=== PATIENT | female | born 1990 | race Caucasian/White ===

== ENCOUNTER 2021-06-11 09:10 | Emergency (ER) | payer OTHER ==
[2021-06-11 09:27] VITALS: BMI 34.8
[2021-06-11] MEDS ORDERED: SODIUM CHLORIDE 1,000 ML IV STA (09:57)
[2021-06-11] MEDS ORDERED: MECLIZINE HCL 25 MG TABLET (FP) PO ONE (09:58)
[2021-06-11] MEDS ORDERED: MECLIZINE HCL 25 MG TABLET (FP) ONE (10:26)
[2021-06-11 10:40] LABS: BASO % 0.6 % (0-2.0); EOS % 0.3 % (0-4.5); HEMATOCRIT 37.6 % (32.4-45.2); HEMOGLOBIN 13.1 GM/dL (10.7-15.3); LYMPH % 15.9 % (8-40); MCH 33.4 pg (25.7-33.7); MCHC 34.7 g/dl (32.0-36.0); MEAN CELL VOLUME 96.2 fl (80-96); MEAN PLT VOLUME 8.5 fl (7.5-11.1); MONO % 4.8 % (3.8-10.2); NEUT % 78.4 % (42.8-82.8); PLATELET COUNT 230 10^3/uL (134-434); RBC 3.91 M/mm3 (3.60-5.2); RDW 13.6 % (11.6-15.6)
[2021-06-11 10:47] LABS: EPI CELLS >36 /uL (0-25.1); HYALINE CASTS 3 /uL (0-3.1); PH,URINE 7.5 (5.0-8.0); URINE APPEARANCE CLOUDY; URINE BACTERIA 2883 /uL (0-1359); URINE BILIRUBIN NEGATIVE (NEGATIVE); URINE COLOR YELLOW; URINE GLUCOSE (UA) NEGATIVE (NEGATIVE); URINE KETONE TRACE (NEGATIVE); URINE LEUK ESTERASE 2+ (NEGATIVE); URINE NITRITE NEGATIVE (NEGATIVE); URINE PROTEIN 1+ (NEGATIVE); URINE RBC 6 /uL (0-23.9); URINE UROBILINOGEN 0.2 mg/dL (0.2-1.0); URINE WBC 85 /uL (0-25.8)
[2021-06-11 10:59] LABS: CHLORIDE 107 mmol/L (98-107); SODIUM 139 mmol/L (136-145)
[2021-06-11 11:01] LABS: CALCIUM 8.8 mg/dL (8.5-10.1)
[2021-06-11 11:03] LABS: ANION GAP 8 MMOL/L (8-16); BLOOD UREA NITROGEN 7.9 mg/dL (7-18); CO2 24 mmol/L (21-32); GLUCOSE,RANDOM 70 mg/dL (74-106); MAGNESIUM 1.8 mg/dL (1.8-2.4)
[2021-06-11 11:05] LABS: CREATININE 0.8 mg/dL (0.55-1.3); SGOT/AST 15 U/L (15-37); SGPT/ALT 16 U/L (13-61)
[2021-06-11 11:07] LABS: BILIRUBIN,TOTAL 0.8 mg/dL (0.2-1); TOT PROT 6.8 g/dl (6.4-8.2)
[2021-06-11 11:08] LABS: ALK PHOS 75 U/L (45-117)
[2021-06-11 14:50] VITALS: TEMP 98
[2021-06-11 15:21] VITALS: BP 114/72; PULSE 89
== END 2021-06-11 15:27 | disposition home or self-care (01) ==
LOC: JER 09:10
PROC: 3E0337Z Introduction of Electrolytic and Water Balance Substance into Peripheral Vein, Percutaneous Approach (ICD-10-PCS; principal; 2021-06-11)
DX: O23.42 Unspecified infection of urinary tract in pregnancy, second trimester (principal); H81.10 Benign paroxysmal vertigo, unspecified ear; Z3A.24 24 weeks gestation of pregnancy
CPT/HCPCS: 36415; 80053; 81003; 82550; 82962; 83735; 84443; 84484; 85025; 87086; 93005; 93010; 99284-25; C9803; U0003; U0005

== ENCOUNTER 2021-09-12 20:00 | Inpatient (IN) | payer BC, OTHER ==
[2021-09-12 20:44] VITALS: BMI 37.8
[2021-09-12] MEDS ORDERED: DINOPROSTONE 10 MG VAGINAL SUPPOSITORY VG ONE (21:15)
[2021-09-12] MEDS ORDERED: ELECTROLYTE-148 SOLN 1,000 ML IV SCH (21:15)
[2021-09-12 21:30] LABS: BASO % 0.5 % (0-2.0); EOS % 0.2 % (0-4.5); HEMATOCRIT 32.8 % (32.4-45.2); HEMOGLOBIN 11.3 GM/dL (10.7-15.3); MCH 33.2 pg (25.7-33.7); MCHC 34.5 g/dl (32.0-36.0); MEAN CELL VOLUME 96.3 fl (80-96); MEAN PLT VOLUME 8.1 fl (7.5-11.1); MONO % 6.6 % (3.8-10.2); NEUT % 73.7 % (42.8-82.8); PLATELET COUNT 227 10^3/uL (134-434); RBC 3.41 M/mm3 (3.60-5.2); RDW 13.8 % (11.6-15.6); WHITE BLOOD COUNT 8.4 K/mm3 (4.0-10.0)
[2021-09-12 21:37] LABS: INR 0.93 (0.83-1.09); PROTHROMBIN TIME (PATIENT) 10.4 SEC (9.7-13.0)
[2021-09-12 21:39] LABS: ACTIVATED PTT 24.6 SECONDS (25.2-36.5)
[2021-09-12 22:03] LABS: CALCIUM 8.1 mg/dL (8.5-10.1)
[2021-09-12 22:04] LABS: BLOOD UREA NITROGEN 12.4 mg/dL (7-18)
[2021-09-12 22:07] LABS: CREATININE 0.9 mg/dL (0.55-1.3)
[2021-09-13] MEDS ORDERED: CITRIC ACID/SODIUM CITRATE 30 ML UNIT-DOSE CUP PO ONE (05:55)
[2021-09-13] MEDS ORDERED: METHYLERGONOVINE MALEATE 0.2 MG/1 ML AMP IM PRN (05:59)
[2021-09-13] MEDS ORDERED: ACETAMINOPHEN 325 MG TABLET (FP) PO PRN (05:59)
[2021-09-13] MEDS ORDERED: ELECTROLYTE-148 SOLN 1,000 ML IV SCH ×2 (06:00)
[2021-09-13] MEDS ORDERED: morphine SULFATE (PF) 1 MG/2 ML SYRINGE ONE (06:10)
[2021-09-13] MEDS ORDERED: OXYTOCIN 10 UNITS/ML VIAL ONE (06:49)
[2021-09-13] MEDS ORDERED: ceFAZolin SODIUM 1 GM VIAL ONE ×3 (06:49→20:23)
[2021-09-13] MEDS ORDERED: KETOROLAC TROMETHAMINE 30 MG/1 ML VIAL ONE (06:49)
[2021-09-13] MEDS ORDERED: ONDANSETRON 4 MG/2 ML VIAL ONE (06:49)
[2021-09-13] MEDS ORDERED: ACETAMINOPHEN INJECTION 100 ML IVPB ONE (07:49)
[2021-09-13] MEDS ORDERED: OXYTOCIN 20 UNITS in 0.9% NS 20 UNIT/1,000 ML INFUS.BAG IV ONE (07:49)
[2021-09-13] MEDS: OXYTOCIN 20 UNITS in 0.9% NS 20 UNIT/1,000 ML INFUS.BAG IV SCH ×2 (07:50→16:54)
[2021-09-13] MEDS ORDERED: ONDANSETRON 4 MG/2 ML VIAL IVPUSH PRN (08:01)
[2021-09-13] MEDS ORDERED: morphine SULFATE/PF 1 MG/2 ML (2cc Syringe - QUVA) IT ONE (08:01)
[2021-09-13] MEDS ORDERED: ACETAMINOPHEN 1000 MG/100 ML VIAL IVPB ONE (08:04)
[2021-09-13 09:32] LABS: CORD HCO3 23.6 mmHg (20-29); CORD PCO2 63.9 mmHg (30-78); CORD pH 7.185 (7.14-7.44)
[2021-09-13 09:35] LABS: CORD BASE EXCESS -5.5 mmol/L (0-2); CORD HCO3 23.1 mmHg (20-29); CORD PCO2 57.1 mmHg (30-78); CORD pH 7.224 (7.14-7.44)
[2021-09-13] MEDS ORDERED: CEFAZOLIN 1 GM in DEXTROSE 5%-WATER - 50 ML IVPB SCH (10:00)
[2021-09-13] MEDS ORDERED: DEXTROSE 5%-WATER - 50 ML IVPB ONE ×2 (14:03→20:23)
[2021-09-13] MEDS: CEFAZOLIN 1 GM in DEXTROSE 5%-WATER - 50 ML IVPB SCH ×2 (14:33→21:46)
[2021-09-13] MEDS: IBUPROFEN 600 MG TABLET (FP) PO PRN ×2 (16:58→20:30)
[2021-09-13] MEDS: SIMETHICONE 80 MG TAB.CHEW (FP) PO PRN ×2 (16:59→20:29)
[2021-09-14] MEDS: oxyCODONE HCL 5 MG TABLET PO PRN ×3 (05:53→19:20)
[2021-09-14] MEDS: IBUPROFEN 600 MG TABLET (FP) PO PRN (05:53)
[2021-09-14] MEDS ORDERED: BISACODYL 10 MG SUPP.RECT RC PRN (06:00)
[2021-09-14] MEDS: SIMETHICONE 80 MG TAB.CHEW (FP) PO PRN ×3 (06:02→19:20)
[2021-09-14 06:25] LABS: BASO % 0.3 % (0-2.0); EOS % 0.4 % (0-4.5); HEMATOCRIT 24.2 % (32.4-45.2); HEMOGLOBIN 8.4 GM/dL (10.7-15.3); LYMPH % 16.3 % (8-40); MCH 33.6 pg (25.7-33.7); MCHC 34.7 g/dl (32.0-36.0); MEAN CELL VOLUME 96.8 fl (80-96); MEAN PLT VOLUME 7.9 fl (7.5-11.1); MONO % 6.4 % (3.8-10.2); NEUT % 76.6 % (42.8-82.8); PLATELET COUNT 176 10^3/uL (134-434); RDW 13.9 % (11.6-15.6); WHITE BLOOD COUNT 7.8 K/mm3 (4.0-10.0)
[2021-09-14] MEDS: ENOXAPARIN NA (PORCINE) 40 MG/0.4 ML DISP.SYRIN SQ SCH (09:21)
[2021-09-15] MEDS: oxyCODONE HCL 5 MG TABLET PO PRN (00:45)
[2021-09-15] MEDS: SIMETHICONE 80 MG TAB.CHEW (FP) PO PRN (07:31)
[2021-09-15] MEDS: ENOXAPARIN NA (PORCINE) 40 MG/0.4 ML DISP.SYRIN SQ SCH (09:34)
[2021-09-15] MEDS: IBUPROFEN 600 MG TABLET (FP) PO PRN (12:44)
[2021-09-16 08:59] LABS: BASO % 0.6 % (0-2.0); EOS % 2.5 % (0-4.5); HEMATOCRIT 26.5 % (32.4-45.2); HEMOGLOBIN 9.2 GM/dL (10.7-15.3); LYMPH % 17.2 % (8-40); MCH 33.4 pg (25.7-33.7); MCHC 34.7 g/dl (32.0-36.0); MEAN CELL VOLUME 96.3 fl (80-96); MEAN PLT VOLUME 7.7 fl (7.5-11.1); MONO % 5.3 % (3.8-10.2); NEUT % 74.4 % (42.8-82.8); PLATELET COUNT 209 10^3/uL (134-434); RBC 2.75 M/mm3 (3.60-5.2); RDW 13.9 % (11.6-15.6); WHITE BLOOD COUNT 7.7 K/mm3 (4.0-10.0)
[2021-09-16] MEDS: ENOXAPARIN NA (PORCINE) 40 MG/0.4 ML DISP.SYRIN SQ SCH (09:57)
[2021-09-16 10:50] VITALS: BP 117/77; PULSE 91; TEMP 98
[2021-09-16] MEDS: IBUPROFEN 600 MG TABLET (FP) PO PRN (13:19)
== END 2021-09-16 16:55 | disposition home or self-care (01) | DRG 788 ==
LOC: JLDR 20:00 → J3W 09-13 09:10
PROVIDERS: ADMIT Obstetrics & Gynecology; ATTEND Obstetrics & Gynecology
PROC: 3E0P7VZ Introduction of Hormone into Female Reproductive, Via Natural or Artificial Opening (ICD-10-PCS; 2021-09-12)
PROC: 10D00Z1 Extraction of Products of Conception, Low, Open Approach (ICD-10-PCS; principal; 2021-09-13)
DX: O36.8330 Maternal care for abnormalities of the fetal heart rate or rhythm, third trimester, not applicable or unspecified (principal); O99.02 Anemia complicating childbirth; O99.213 Obesity complicating pregnancy, third trimester; E66.01 Morbid (severe) obesity due to excess calories; Z3A.40 40 weeks gestation of pregnancy; Z37.0 Single live birth
CPT/HCPCS: 36415; 36600; 80048; 82803; 85025; 85610; 85730; 86780; 86850; 86900; 86901; 88307-TC; J0131

== ENCOUNTER 2024-05-06 06:15 | Inpatient (IN) | payer BC, OTHER ==
[2024-05-06 07:15] VITALS: BMI 41.1
[2024-05-06] MEDS: CITRIC ACID/SODIUM CITRATE 30 ML UNIT-DOSE CUP PO ONE (07:30)
[2024-05-06] MEDS: ELECTROLYTE-148 SOLN 1,000 ML IV ONE (07:30)
[2024-05-06] MEDS ORDERED: ONDANSETRON 4 MG/2 ML VIAL IVPUSH PRN (08:01)
[2024-05-06] MEDS ORDERED: IBUPROFEN 600 MG TABLET (FP) PO PRN ×3 (08:01→20:51)
[2024-05-06] MEDS ORDERED: ACETAMINOPHEN 325 MG TABLET (FP) PO PRN ×2 (08:01→12:16)
[2024-05-06] MEDS ORDERED: PROPOFOL 20 ML ONE ×2 (08:19→18:34)
[2024-05-06] MEDS ORDERED: SUCCINYLCHOLINE CHLORIDE 200 MG/10 ML SYRINGE ONE ×2 (08:19→18:34)
[2024-05-06] MEDS: ELECTROLYTE-148 SOLN 1,000 ML IV SCH (08:30)
[2024-05-06] MEDS ORDERED: SODIUM CHLORIDE 0.9% P/F 10 ML VIAL IJ ONE ×2 (10:33→10:50)
[2024-05-06] MEDS ORDERED: ceFAZolin SODIUM 1 GM VIAL ONE ×2 (10:33→20:57)
[2024-05-06] MEDS ORDERED: PHENYLEPHRINE HCL 10 MG/1 ML SINGLE DOSE VIAL ONE (10:33)
[2024-05-06] MEDS ORDERED: morphine SULFATE/PF 1 MG/2 ML (2cc Syringe - QUVA) ONE (10:40)
[2024-05-06 10:51] LABS: RETICULOCYTES 1.97 % (0.5-1.5)
[2024-05-06] MEDS ORDERED: OXYTOCIN 10 UNITS/ML VIAL ONE ×3 (11:05→11:28)
[2024-05-06] MEDS ORDERED: ONDANSETRON 4 MG/2 ML VIAL ONE (11:14)
[2024-05-06] MEDS ORDERED: METOCLOPRAMIDE HCL INJECTION 10 MG/2 ML VIAL ONE (11:14)
[2024-05-06 11:42] LABS: URIC ACID 8.3 mg/dL (2.6-7.2)
[2024-05-06] MEDS ORDERED: SIMETHICONE 80 MG TAB.CHEW (FP) PO PRN (12:16)
[2024-05-06] MEDS ORDERED: METHYLERGONOVINE MALEATE 0.2 MG/1 ML AMP IM PRN (12:16)
[2024-05-06] MEDS ORDERED: IBUPROFEN 800 MG/8 ML IJ IVPB PRN (12:20)
[2024-05-06] MEDS: OXYTOCIN 20 UNITS in 0.9% NS 20 UNIT/1,000 ML INFUS.BAG IV SCH (13:00)
[2024-05-06 13:06] LABS: CORD BASE EXCESS -2.9 mmol/L (0-2); CORD HCO3 24.3 mmHg (20-29); CORD PCO2 50.1 mmHg (30-78); CORD pH 7.303 (7.14-7.44)
[2024-05-06 13:07] LABS: CORD HCO3 24.5 mmHg (20-29); CORD PCO2 59.3 mmHg (30-78); CORD pH 7.234 (7.14-7.44)
[2024-05-06] MEDS: CARBOPROST TROMETHAMINE 250 MCG/ML AMPUL IM ONE (13:17)
[2024-05-06] MEDS ORDERED: OXYTOCIN 20 UNITS in 0.9% NS 20 UNIT/1,000 ML INFUS.BAG IV ONE (13:20)
[2024-05-06 13:23] LABS: BASO % 0.5 % (0-2.0); EOS % 0.4 % (0-4.5); HEMATOCRIT 34.3 % (32.4-45.2); HEMOGLOBIN 11.6 GM/dL (10.7-15.3); LYMPH % 13.8 % (8-40); MCH 32.4 pg (25.7-33.7); MCHC 33.9 g/dl (32.0-36.0); MEAN CELL VOLUME 95.6 fl (80-96); MEAN PLT VOLUME 8.6 fl (7.5-11.1); MONO % 4.7 % (3.8-10.2); NEUT % 80.6 % (42.8-82.8); PLATELET COUNT 175 10^3/uL (134-434); RBC 3.59 M/mm3 (3.60-5.2); RDW 14.3 % (11.6-15.6); WHITE BLOOD COUNT 9.8 K/mm3 (4.0-10.0)
[2024-05-06] MEDS: ACETAMINOPHEN 1000 MG/100 ML BAG IVPB PRN (14:00)
[2024-05-06] MEDS ORDERED: ACETAMINOPHEN INJECTION 100 ML IVPB ONE (14:08)
[2024-05-06] MEDS ORDERED: TRANEXAMIC ACID 1000 MG/10 ML VIAL ONE (15:58)
[2024-05-06] MEDS: TRANEXAMIC ACID 1000 MG/10 ML VIAL IVPUSH ONE (16:00)
[2024-05-06] MEDS: MISOPROSTOL 200 MCG TABLET NR ONE (16:50)
[2024-05-06] MEDS ORDERED: MISOPROSTOL 200 MCG TABLET ONE (17:30)
[2024-05-06] MEDS ORDERED: KETAMINE HCL 200 MG/20 ML VIAL ONE (18:33)
[2024-05-06] MEDS ORDERED: MIDAZOLAM HCL 2 MG/2 ML SINGLE DOSE VIAL ONE ×3 (18:33→19:15)
[2024-05-06] MEDS ORDERED: LACTATED RINGERS SOLUTION 1,000 ML IV SCH (20:00)
[2024-05-06] MEDS: CARBOPROST TROMETHAMINE 250 MCG/ML AMPUL IM SCH ×2 (20:17→22:19)
[2024-05-06 20:43] LABS: HEMATOCRIT 34.4 % (32.4-45.2); HEMOGLOBIN 11.7 GM/dL (10.7-15.3); MCH 31.6 pg (25.7-33.7); MCHC 34.1 g/dl (32.0-36.0); MEAN CELL VOLUME 92.6 fl (80-96); MEAN PLT VOLUME 8.4 fl (7.5-11.1); PLATELET COUNT 143 10^3/uL (134-434); RBC 3.72 M/mm3 (3.60-5.2); RDW 14.5 % (11.6-15.6); WHITE BLOOD COUNT 14.6 K/mm3 (4.0-10.0)
[2024-05-06] MEDS ORDERED: ACETAMINOPHEN 1000 MG/100 ML BAG IVPB PRN (20:51)
[2024-05-06] MEDS: ALBUMIN HUMAN 5% 250 ML IV SOLUTION IV ONE (20:53)
[2024-05-06] MEDS: CEFAZOLIN 1 GM in DEXTROSE 5%-WATER - 50 ML IVPB SCH (21:04)
[2024-05-06 21:48] LABS: POTASSIUM 4.2 mmol/L (3.5-5.1)
[2024-05-06 21:51] LABS: CALCIUM 7.8 mg/dL (8.5-10.1)
[2024-05-06 21:52] LABS: ALBUMIN 2.4 g/dl (3.4-5.0); BLOOD UREA NITROGEN 8.2 mg/dL (7-18)
[2024-05-06 21:55] LABS: CREATININE 0.8 mg/dL (0.55-1.3)
[2024-05-06 21:57] LABS: TOT PROT 5.3 g/dl (6.4-8.2)
[2024-05-06] MEDS: MUPIROCIN 2% TOPICAL OINTMENT FOR DECOLONIZATION NS SCH (22:20)
[2024-05-06] MEDS: CHLORHEXIDINE GLUCONATE 4% CLEANSER FOR DECOLONIZATION TP SCH (22:20)
[2024-05-06] MEDS: LACTATED RINGERS SOLUTION 1,000 ML/1,000 ML INFUS.BAG IV SCH (22:50)
[2024-05-06] MEDS: ONDANSETRON 4 MG/2 ML VIAL IVPUSH PRN (23:07)
[2024-05-07] MEDS ORDERED: oxyCODONE HCL 5 MG TABLET PO PRN ×3 (00:16→18:36)
[2024-05-07 00:35] LABS: BASO % 0.2 % (0-2.0); EOS % 0.1 % (0-4.5); HEMATOCRIT 33.8 % (32.4-45.2); HEMOGLOBIN 11.5 GM/dL (10.7-15.3); LYMPH % 5.5 % (8-40); MCH 31.4 pg (25.7-33.7); MEAN CELL VOLUME 92.5 fl (80-96); MEAN PLT VOLUME 8.4 fl (7.5-11.1); MONO % 4.6 % (3.8-10.2); NEUT % 89.6 % (42.8-82.8); PLATELET COUNT 151 10^3/uL (134-434); RBC 3.66 M/mm3 (3.60-5.2); RDW 14.9 % (11.6-15.6)
[2024-05-07 00:43] LABS: INR 0.98 (0.83-1.09); PROTHROMBIN TIME (PATIENT) 11.1 SEC (9.7-13.0)
[2024-05-07 00:57] LABS: POTASSIUM 4.1 mmol/L (3.5-5.1)
[2024-05-07 01:00] LABS: ALBUMIN 2.6 g/dl (3.4-5.0); BLOOD UREA NITROGEN 7.6 mg/dL (7-18); MAGNESIUM 1.8 mg/dL (1.8-2.4)
[2024-05-07 01:03] LABS: CREATININE 0.7 mg/dL (0.55-1.3)
[2024-05-07 01:04] LABS: BILIRUBIN,TOTAL 1.1 mg/dL (0.2-1); TOT PROT 5.4 g/dl (6.4-8.2)
[2024-05-07 03:29] LABS: BASO % 0.1 % (0-2.0); EOS % 0.1 % (0-4.5); HEMATOCRIT 31.7 % (32.4-45.2); HEMOGLOBIN 10.9 GM/dL (10.7-15.3); MCH 31.3 pg (25.7-33.7); MCHC 34.3 g/dl (32.0-36.0); MEAN CELL VOLUME 91.4 fl (80-96); MEAN PLT VOLUME 8.5 fl (7.5-11.1); MONO % 5.8 % (3.8-10.2); PLATELET COUNT 153 10^3/uL (134-434); RBC 3.47 M/mm3 (3.60-5.2); RDW 14.7 % (11.6-15.6); WHITE BLOOD COUNT 12.2 K/mm3 (4.0-10.0)
[2024-05-07 08:40] LABS: BASO % 0.3 % (0-2.0); EOS % 0.2 % (0-4.5); HEMATOCRIT 37.1 % (32.4-45.2); HEMOGLOBIN 12.5 GM/dL (10.7-15.3); LYMPH % 10.4 % (8-40); MCH 31.2 pg (25.7-33.7); MCHC 33.6 g/dl (32.0-36.0); MEAN CELL VOLUME 92.8 fl (80-96); MEAN PLT VOLUME 8.7 fl (7.5-11.1); MONO % 7.7 % (3.8-10.2); NEUT % 81.4 % (42.8-82.8); PLATELET COUNT 155 10^3/uL (134-434); WHITE BLOOD COUNT 11.9 K/mm3 (4.0-10.0)
[2024-05-07 08:51] LABS: INR 0.94 (0.83-1.09); PROTHROMBIN TIME (PATIENT) 10.8 SEC (9.7-13.0)
[2024-05-07 08:54] LABS: ACTIVATED PTT 26.3 SECONDS (25.2-36.5)
[2024-05-07 08:58] LABS: POTASSIUM 4.3 mmol/L (3.5-5.1)
[2024-05-07 09:00] LABS: ALBUMIN 2.6 g/dl (3.4-5.0); CALCIUM 8.3 mg/dL (8.5-10.1); MAGNESIUM 1.8 mg/dL (1.8-2.4)
[2024-05-07 09:01] LABS: BLOOD UREA NITROGEN 6.4 mg/dL (7-18)
[2024-05-07 09:03] LABS: PHOSPHOROUS 3.8 mg/dL (2.5-4.9)
[2024-05-07 09:04] LABS: CREATININE 0.9 mg/dL (0.55-1.3)
[2024-05-07 09:05] LABS: BILIRUBIN,TOTAL 1.2 mg/dL (0.2-1); TOT PROT 5.2 g/dl (6.4-8.2)
[2024-05-07] MEDS ORDERED: ENOXAPARIN NA (PORCINE) 40 MG/0.4 ML DISP.SYRIN SQ SCH (10:00)
[2024-05-07] MEDS ORDERED: BISACODYL 10 MG SUPP.RECT RC PRN (12:16)
[2024-05-07 12:41] LABS: BASO % 0.4 % (0-2.0); EOS % 0.6 % (0-4.5); HEMATOCRIT 35.5 % (32.4-45.2); HEMOGLOBIN 12.2 GM/dL (10.7-15.3); LYMPH % 10.6 % (8-40); MCH 31.5 pg (25.7-33.7); MCHC 34.4 g/dl (32.0-36.0); MEAN CELL VOLUME 91.3 fl (80-96); MEAN PLT VOLUME 7.8 fl (7.5-11.1); MONO % 7.9 % (3.8-10.2); NEUT % 80.5 % (42.8-82.8); PLATELET COUNT 145 10^3/uL (134-434); RBC 3.89 M/mm3 (3.60-5.2); RDW 14.9 % (11.6-15.6); WHITE BLOOD COUNT 12.7 K/mm3 (4.0-10.0)
[2024-05-07] MEDS: ACETAMINOPHEN 1000 MG/100 ML BAG IVPB SCH (15:28)
[2024-05-07] MEDS: morphine SULFATE/PF 1 MG/2 ML (2cc Syringe - QUVA) EP ONE ×2 (19:19→19:23)
[2024-05-07] MEDS: ELECTROLYTE-148 SOLN 1,000 ML IV SCH (19:20)
[2024-05-07] MEDS: ALBUMIN HUMAN 5% 250 ML IV SOLUTION IV ONE (19:21)
[2024-05-07] MEDS: IBUPROFEN 600 MG TABLET (FP) PO PRN (20:27)
[2024-05-07] MEDS: SIMETHICONE 80 MG TAB.CHEW (FP) PO PRN (20:27)
[2024-05-07] MEDS: ACETAMINOPHEN 325 MG TABLET (FP) PO PRN (22:00)
[2024-05-08 02:11] VITALS: RESP 18
[2024-05-08] MEDS ORDERED: DIPHTH,PERTUSS(ACELL),TET 0.5 ML DISP.SYRIN IM ONE (10:00)
[2024-05-08 22:55] VITALS: PULSE 70
[2024-05-09 08:30] LABS: BASO % 0.5 % (0-2.0); EOS % 1.4 % (0-4.5); HEMATOCRIT 34.6 % (32.4-45.2); HEMOGLOBIN 11.9 GM/dL (10.7-15.3); LYMPH % 12.7 % (8-40); MCH 31.9 pg (25.7-33.7); MCHC 34.3 g/dl (32.0-36.0); MEAN CELL VOLUME 92.9 fl (80-96); MONO % 6.4 % (3.8-10.2); PLATELET COUNT 164 10^3/uL (134-434); RBC 3.72 M/mm3 (3.60-5.2); RDW 15.1 % (11.6-15.6); WHITE BLOOD COUNT 8.3 K/mm3 (4.0-10.0)
[2024-05-09 14:08] VITALS: BP 120/80; TEMP 98
== END 2024-05-09 11:45 | disposition home or self-care (01) | DRG 786 ==
LOC: JLDR 06:15 → J3W 14:25 → JLDR 15:52 → JICU 21:24 → J3W 05-07 18:48
PROVIDERS: ADMIT Obstetrics & Gynecology; ATTEND Obstetrics & Gynecology
PROC: 10D00Z1 Extraction of Products of Conception, Low, Open Approach (ICD-10-PCS; 2024-05-06)
PROC: 0W3R7ZZ Control Bleeding in Genitourinary Tract, Via Natural or Artificial Opening (ICD-10-PCS; 2024-05-06)
PROC: 30233L1 Transfusion of Nonautologous Fresh Plasma into Peripheral Vein, Percutaneous Approach (ICD-10-PCS; 2024-05-06)
PROC: 30233N1 Transfusion of Nonautologous Red Blood Cells into Peripheral Vein, Percutaneous Approach (ICD-10-PCS; 2024-05-06)
PROC: 30233R1 Transfusion of Nonautologous Platelets into Peripheral Vein, Percutaneous Approach (ICD-10-PCS; 2024-05-06)
PROC: 30233K1 Transfusion of Nonautologous Frozen Plasma into Peripheral Vein, Percutaneous Approach (ICD-10-PCS; 2024-05-06)
PROC: 10D07Z8 Extraction of Products of Conception, Other, Via Natural or Artificial Opening (ICD-10-PCS; 2024-05-06)
PROC: 0W3R7ZZ Control Bleeding in Genitourinary Tract, Via Natural or Artificial Opening (ICD-10-PCS; principal; 2024-05-06 18:38)
DX: O60.14X0 Preterm labor third trimester with preterm delivery third trimester, not applicable or unspecified (principal); O44.13 Complete placenta previa with hemorrhage, third trimester; O72.1 Other immediate postpartum hemorrhage; O14.04 Mild to moderate pre-eclampsia, complicating childbirth; O34.219 Maternal care for unspecified type scar from previous cesarean delivery; G89.18 Other acute postprocedural pain; Z3A.36 36 weeks gestation of pregnancy; Z37.0 Single live birth
CPT/HCPCS: 36415; 36430; 36600; 59409; 72191-TC; 80053; 82803; 82977; 83010; 83735; 84100; 84450; 84460; 84550; 85025; 85027; 85032; 85045; 85384; 85610; 85730; 88307-TC; 94760; J0131; P9017; P9034; P9038; P9058; Q9967